=== PATIENT | female | born 1945 | race Caucasian/White ===

== ENCOUNTER 2017-07-11 11:06 | Inpatient (IN) | payer MEDICARE ==
[~2017-07-11] VITALS: Ht 162.6 cm; Wt 84.4 kg
[2017-07-11] MEDS ORDERED: HYDROmorphone PF 2 MG/ML VIAL IV PRN (11:30)
[2017-07-11 11:31] VITALS: BP 151/83
[2017-07-11] MEDS ORDERED: POLYETHYLENE GLYCOL 3350 17 GM PACKET. PO PRN (11:45)
[2017-07-11 12:08] LABS: BASO % 0 % (0-3); EOS # 0.1 x10^3/uL (0.0-0.7); EOS % 1 % (0-3); HEMATOCRIT 42.7 % (36.0-47.0); HEMOGLOBIN 14.4 g/dL (12.0-15.5); LYMPH # 0.5 x10^3/uL (1.0-4.8); LYMPH % 4 % (24-48); MEAN CORPUSCULAR HEMOGLOBIN 30 pg (25-35); MEAN CORPUSCULAR HGB CONC 34 g/dL (31-37); MEAN CORPUSCULAR VOLUME 89 fL (79-100); MONO # 0.6 x10^3/uL (0.0-1.1); MONO % 5 % (0-9); NEUT # 11.6 x10^3uL (1.8-7.7); NEUT % 91 % (31-73); PLATELET COUNT 181 x10^3/uL (140-400); RED BLOOD COUNT 4.78 x10^6/uL (3.50-5.40); RED CELL DISTRIBUTION WIDTH 12.9 % (11.5-14.5); WHITE BLOOD COUNT 12.8 x10^3/uL (4.0-11.0)
[2017-07-11 12:24] LABS: ALBUMIN 2.6 g/dL (3.4-5.0); ALBUMIN/GLOBULIN RATIO 0.6 (1.0-1.7); CALCIUM 9.1 mg/dL (8.5-10.1); CREATININE 1.5 mg/dL (0.6-1.0); GFR 34.2; POTASSIUM 4.9 mmol/L (3.5-5.1); TOTAL BILIRUBIN 1.3 mg/dL (0.2-1.0); TOTAL PROTEIN 7.1 g/dL (6.4-8.2)
[2017-07-11] MEDS ORDERED: INSULIN ASPART 300 UNITS/3 ML INSULN.PEN SQ ONE ×2 (13:00→16:45)
[2017-07-11] MEDS: CLINDAMYCIN 600MG PREMIX 50 ML IV SCH ×2 (13:32→20:57)
[2017-07-11] MEDS: IV NORMAL SALINE 1,000ML 1,000 ML IV SCH ×3 (13:32→22:00)
--- NOTE | 2017-07-11 13:33 | RAD ---
Indication: Cough and congestion. Time of exam 1312 hours. No prior studies are available for comparison. FINDINGS: The heart size is normal. The lungs are clear. No pleural effusion or pneumothorax is identified. The pulmonary vascularity is normal. IMPRESSION: No acute abnormality detected.
[2017-07-11 13:38] LABS: % BANDS 26 % (0-9); % BASOS 2 % (0-3); % EOS 1 % (0-5); % LYMPHS 1 % (24-48); % MONOS 5 % (0-10); PLT ESTIMATE ADEQUATE (ADEQUATE)
[2017-07-11 13:41] LABS: POLYCHROMASIA SLIGHT; TOXIC GRANULATION SLIGHT
--- NOTE | 2017-07-11 13:48 | RAD ---
Indication: Redness, fever and tenderness to the anal region. Axial imaging through the abdomen and pelvis was performed without contrast. No prior studies are available for comparison. The lung bases are clear. The liver and gallbladder are unremarkable. The pancreas and spleen are unremarkable. No adrenal mass is identified. The kidneys are unremarkable. No calculi or hydronephrosis is seen. Aorta is calcified but nonaneurysmal. The small and large bowel loops are normal caliber. There is no ascites. There is a tiny fat-containing umbilical hernia. The bladder is unremarkable. There are inflammatory changes identified within the fat in the right gluteal region extending anteriorly to involve the vulva. Areas of slightly higher density are identified within the fat which may represent more phlegmonous changes but no well-formed fluid collection or abscess is seen at this time. No intra-abdominal abscess is seen. Impression: Cellulitic changes involving the right gluteal and right vulvar regions. No fluid collection or abscess is detected. PQRS Compliance Statement: One or more of the following individualized dose reduction techniques were utilized for this examination: 1. Automated exposure control 2. Adjustment of the mA and/or kV according to patient size 3. Use of iterative reconstruction technique
[2017-07-11] MEDS ORDERED: MEROPENEM 1 GM in IV NORMAL SALINE 100ML 100 ML IV SCH (14:00)
[2017-07-11] MEDS ORDERED: NAPR220C4 PO (14:16)
[2017-07-11] MEDS: FLUCONAZOLE 100 MG TABLET. PO SCH (14:24)
[2017-07-11 14:34] VITALS: BP 127/61
[2017-07-11] MEDS ORDERED: DEXTROSE 50% 25 GM / 50ML DISP.SYRIN. IV PRN (15:45)
[2017-07-11] MEDS: INSULIN ASPART 300 UNITS/3 ML INSULN.PEN SQ SCH ×2 (16:30→21:03)
[2017-07-11 19:35] VITALS: BP 133/83
[2017-07-11] MEDS: MEROPENEM 1 GM in IV NORMAL SALINE 100ML 100 ML IV SCH (19:53)
[2017-07-11] MEDS: ACETAMINOPHEN 500 MG TABLET PO PRN (19:53)
[2017-07-11] MEDS: LACTOBACILLUS RHAMNOSUS GG 1 CAPSULE. PO SCH (20:57)
[2017-07-11 21:13] LABS: BILIRUBIN,URINE NEG (NEG); CLARITY,URINE CLEAR; COLOR,URINE YELLOW; GLUCOSE,URINE >=1000 mg/dL (NEG); NITRITE,URINE NEG (NEG); UROBILINOGEN,URINE 0.2 mg/dL (0.2 mg/dL)
[2017-07-11 21:14] LABS: BACTERIA,URINE FEW /HPF (0-FEW); SQUAMOUS EPITHELIAL CELL,UR FEW /LPF
[2017-07-11] MEDS: NYSTATIN TOPICAL POWDER 30GM BOTTLE. TP SCH (21:27)
[2017-07-11 23:02] VITALS: BP 120/61
[2017-07-12] MEDS: IV NORMAL SALINE 1,000ML 1,000 ML IV SCH ×5 (03:08→22:56)
[2017-07-12] MEDS: CLINDAMYCIN 600MG PREMIX 50 ML IV SCH ×3 (05:28→21:06)
[2017-07-12] MEDS: ACETAMINOPHEN 500 MG TABLET PO PRN ×2 (06:04→22:22)
[2017-07-12 06:14] VITALS: BP 107/66
[2017-07-12 06:15] LABS: BASO # 0.1 x10^3/uL (0.0-0.2); BASO % 1 % (0-3); EOS # 0.1 x10^3/uL (0.0-0.7); EOS % 1 % (0-3); HEMATOCRIT 36.6 % (36.0-47.0); HEMOGLOBIN 12.5 g/dL (12.0-15.5); LYMPH # 0.7 x10^3/uL (1.0-4.8); LYMPH % 6 % (24-48); MEAN CORPUSCULAR HEMOGLOBIN 30 pg (25-35); MEAN CORPUSCULAR HGB CONC 34 g/dL (31-37); MEAN CORPUSCULAR VOLUME 87 fL (79-100); MONO # 0.7 x10^3/uL (0.0-1.1); MONO % 6 % (0-9); NEUT # 9.5 x10^3uL (1.8-7.7); NEUT % 86 % (31-73); PLATELET COUNT 164 x10^3/uL (140-400); RED CELL DISTRIBUTION WIDTH 12.7 % (11.5-14.5)
[2017-07-12 06:24] LABS: CALCIUM 8.1 mg/dL (8.5-10.1); GFR 54.7; POTASSIUM 4.3 mmol/L (3.5-5.1)
[2017-07-12] MEDS ORDERED: DEXTROSE 50% 25 GM / 50ML DISP.SYRIN. IV PRN (08:15)
[2017-07-12] MEDS: INSULIN ASPART 300 UNITS/3 ML INSULN.PEN SQ SCH ×3 (08:35→17:28)
[2017-07-12] MEDS: NYSTATIN TOPICAL POWDER 30GM BOTTLE. TP SCH ×2 (09:00→21:00)
[2017-07-12] MEDS ORDERED: FLUCONAZOLE 100 MG TABLET. PO SCH (09:00)
[2017-07-12] MEDS ORDERED: INSULIN DETEMIR 300 UNITS/3 ML INSULN.PEN. SQ SCH (09:00)
[2017-07-12] MEDS: LACTOBACILLUS RHAMNOSUS GG 1 CAPSULE. PO SCH ×2 (09:08→21:04)
[2017-07-12] MEDS: DOCUSATE SODIUM 100 MG CAPSULE PO PRN (09:09)
[2017-07-12] MEDS: FLUCONAZOLE 100 MG TABLET. PO SCH (09:09)
[2017-07-12] MEDS: MEROPENEM 1 GM in IV NORMAL SALINE 100ML 100 ML IV SCH (09:10)
[2017-07-12] MEDS ORDERED: MEROPENEM 1 GM in IV NORMAL SALINE 100ML 100 ML IV SCH (11:30)
[2017-07-12 11:37] VITALS: BP 128/68
[2017-07-12 16:05] VITALS: BP 140/72
[2017-07-12 19:39] VITALS: BP 139/77
[2017-07-12] MEDS: MEROPENEM IV Push 1 GM VIAL. IVP SCH (21:05)
[2017-07-12] MEDS: INSULIN DETEMIR 300 UNITS/3 ML INSULN.PEN. SQ SCH (21:07)
[2017-07-12 22:42] VITALS: BP 116/73
[2017-07-13 01:08] LABS: HEMOGLOBIN A1C 13.6 % (4.8-5.6)
[2017-07-13 05:00] VITALS: BP 116/71
[2017-07-13] MEDS: ACETAMINOPHEN 500 MG TABLET PO PRN (06:00)
[2017-07-13] MEDS: CLINDAMYCIN 600MG PREMIX 50 ML IV SCH ×4 (06:04→20:31)
[2017-07-13] MEDS: MEROPENEM IV Push 1 GM VIAL. IVP SCH ×3 (06:05→21:54)
[2017-07-13] MEDS: INSULIN DETEMIR 300 UNITS/3 ML INSULN.PEN. SQ SCH ×2 (08:42→20:33)
[2017-07-13] MEDS: INSULIN ASPART 300 UNITS/3 ML INSULN.PEN SQ SCH ×3 (08:42→17:15)
[2017-07-13] MEDS: IV NORMAL SALINE 1,000ML 1,000 ML IV SCH ×2 (09:00→11:38)
[2017-07-13] MEDS: NYSTATIN TOPICAL POWDER 30GM BOTTLE. TP SCH ×2 (09:00→20:33)
[2017-07-13] MEDS: LACTOBACILLUS RHAMNOSUS GG 1 CAPSULE. PO SCH ×2 (09:06→20:31)
[2017-07-13] MEDS: FLUCONAZOLE 100 MG TABLET. PO SCH (09:06)
--- NOTE | 2017-07-13 09:49 | PN ---
DATE: 07/12/2017 SUBJECTIVE: The patient is a 72-year-old female who came in with cellulitis to the perineal area and the right gluteal area. CT scan does not show any abscesses. Her white count has come down a little bit from 12 to 11. She had 26 bands. The patient's sodium yesterday was 129, potassium 4.9, BUN and creatinine 23 and 1.5. They have improved to 132, 27, and 1. Blood sugars are still running on the high side. We will continue to increase her insulin, given diabetic information about her diabetes. No doubt as one of the instigating factors. OBJECTIVE: Otherwise, the patient's abdomen is soft, diffuse tenderness, no rebound or guarding. Positive bowel sounds. The patient's perineal area markedly improved, although markedly inflamed, is still inflamed and irritated. The patient had a culture taken. She has showed some gram-positive rods, gram-positive cocci from the drainage from the gluteal area. We will continue to monitor. Continue with IV antibiotic therapy. IMPRESSION: Sepsis, perineal cellulitis, type 2 diabetes and perineal yeast infection to that area as described. MAXIMUS ESPAÑA MD DR: FERNANDO/loyd JOB#: [id number] / [id number]
[2017-07-13 11:48] VITALS: BP 146/71
[2017-07-13] MEDS: ONDANSETRON PF 4 MG/2 ML VIAL. IV PRN (14:13)
[2017-07-13 15:35] VITALS: BP 128/72
--- NOTE | 2017-07-13 16:31 | RAD ---
Clinical indications: Right leg pain and coldness. Decreased pulse. Findings: Duplex sonography of the peripheral arterial system of both lower extremities including gomez scale and color flow and spectral waveform analysis was performed.Triphasic and biphasic waveforms are seen. No occlusive disease is seen. No significant plaque formation or flow-limiting stenosis is identified. The measurements were performed using the NASCET criteria. Peak systolic flow velocities are as follows: Right leg: common femoral artery- 44 cm/sec, profunda femoral artery -53 cm/sec, proximal superficial femoral artery -56cm/sec, mid superficial femoral artery -62 cm/sec, distal superficial femoral artery- 74 cm/sec, popliteal artery -27 cm/sec, proximal posterior tibial artery- 19 cm/sec, distal posterior tibial artery- 27 cm/sec, peroneal artery- 37 cm/sec, anterior tibial artery- 35 cm/sec, dorsalis pedis artery -51 cm/sec. Left leg: common femoral artery- 64 cm/sec, profunda femoral artery -34 cm/sec, proximal superficial femoral artery- 49cm/sec, mid superficial femoral artery- 59 cm/sec, distal superficial femoral artery- 41 cm/sec, popliteal artery -39 cm/sec, proximal posterior tibial artery -29 cm/sec, distal posterior tibial artery- 12 cm/sec, peroneal artery -30 cm/sec, anterior tibial artery -35 cm/sec, dorsalis pedis artery- 148 cm/sec. Impression: No significant peripheral arterial vascular disease is seen by duplex sonographic evaluation. Electronically signed by: Perry Avila MD (07/13/2017 4:28 PM) [id number]
[2017-07-13] MEDS: PENTOXIFYLLINE ER 400 MG TABLET.ER. PO SCH (17:12)
[2017-07-13 19:53] VITALS: BP 122/76
[2017-07-13] MEDS: traMADol/APAP 37.5/325 1 TAB TABLET PO PRN (20:31)
--- NOTE | 2017-07-13 21:01 | PN ---
DATE: SUBJECTIVE: A 72-year-old female newly diagnosed diabetic with cellulitis to her perineal and gluteal area. The patient complained of pain in her right foot area and pulses were noted to be markedly diminished. We will do further testing on that as an outpatient, put her on Trental for that. However, the patient's white count is down a little bit. She did have marked left shift yesterday consistent with sepsis. Blood sugars are coming down gradually as the infection shows marked improvement in the perineal and gluteal area as well as using nystatin for the yeast infection. OBJECTIVE: GENERAL: Otherwise, the patient herself is alert and oriented. VITAL SIGNS: Blood pressure 116/70, respiratory rate 20, pulse 80, had a temperature last night of 100.7 and pulse of 110. So, she will continue to be monitored carefully and IV antibiotic therapy. Make further evaluation. IMPRESSION: Cellulitis to the perineal area and to the right gluteal area, contusion of the right great toe as well as peripheral vascular disease, put her on the Trental. Continue on IV antibiotic therapy. Type 2 diabetes, new onset as well was also diagnosed. MAXIMUS ESPAÑA MD DR: FERNANDO/loyd JOB#: [id number] / [id number]
[2017-07-13 22:35] VITALS: BP 108/73
[2017-07-14] MEDS: traMADol/APAP 37.5/325 1 TAB TABLET PO PRN ×3 (01:54→20:40)
[2017-07-14] MEDS: CLINDAMYCIN 600MG PREMIX 50 ML IV SCH (04:50)
[2017-07-14 05:02] VITALS: BP 128/71
[2017-07-14] MEDS: MEROPENEM IV Push 1 GM VIAL. IVP SCH (05:16)
[2017-07-14] MEDS: LACTOBACILLUS RHAMNOSUS GG 1 CAPSULE. PO SCH ×2 (08:10→20:40)
[2017-07-14] MEDS: PENTOXIFYLLINE ER 400 MG TABLET.ER. PO SCH ×2 (08:11→20:44)
[2017-07-14] MEDS: FLUCONAZOLE 100 MG TABLET. PO SCH (08:11)
[2017-07-14] MEDS: NYSTATIN TOPICAL POWDER 30GM BOTTLE. TP SCH ×2 (08:11→20:43)
[2017-07-14] MEDS: INSULIN DETEMIR 300 UNITS/3 ML INSULN.PEN. SQ SCH ×2 (08:19→20:47)
[2017-07-14] MEDS: INSULIN ASPART 300 UNITS/3 ML INSULN.PEN SQ SCH ×4 (08:33→20:41)
--- NOTE | 2017-07-14 08:42 | RAD ---
Examination: 3 views of the right foot History: History of right great toe pain Comparison: None available Findings: Large enthesophyte identified in the inferior aspect of the calcaneus. There is mild joint space loss identified in the first MTP joint likely degeneration. The alignment of the tarsal joints, tarsometatarsal joints, interphalangeal joint grossly appears unremarkable. Impression: No acute osseous findings.
[2017-07-14 10:18] VITALS: BP 131/66
[2017-07-14] MEDS: cefTRIAXone IV Push 1 GM VIAL. IVP SCH (11:25)
[2017-07-14] MEDS ORDERED: CALCIUM CARBONATE 500 MG TAB.CHEW PO PRN (13:15)
[2017-07-14 15:43] VITALS: BP 162/74
[2017-07-14] MEDS: ONDANSETRON PF 4 MG/2 ML VIAL. IV PRN (17:10)
[2017-07-14] MEDS: ACETAMINOPHEN 500 MG TABLET PO PRN (17:10)
--- NOTE | 2017-07-14 18:38 | PN ---
DATE: 07/14/2017 SUBJECTIVE: A 72-year-old female with severe cellulitis and sepsis to her perineal and gluteal area. The patient is resting fairly comfortably, making fairly good progress overall. PHYSICAL EXAMINATION: VITAL SIGNS: The patient's blood pressure down to about 160/70, respiratory 20, pulse still at 100, occasionally spikes a temperature, but overall is improving. LUNGS: Diminished, but clear. CARDIOVASCULAR: Stable. GENITOURINARY: Perineal area less inflamed, but she is still very tender, still unable to sit as a result of the pain in her gluteal area. We will continue on IV antibiotic therapy and make further evaluation on her; urine culture came back growing out E. coli, perineal abscess apparently did not grow out anything in particular with probable E. coli there. We will continue on IV antibiotic therapy. IMPRESSION: Acute cellulitis to the perineal area, acute cellulitis to the gluteal area, erysipelas, as well as urinary tract infection with Escherichia coli. PLAN: Continue on intravenous antibiotic therapy, adjust accordingly. MAXIMUS ESPAÑA MD DR: FERNANDO/loyd JOB#: [id number] / [id number]
[2017-07-14 19:16] VITALS: BP 129/61
[2017-07-14] MEDS: DOCUSATE SODIUM 100 MG CAPSULE PO PRN (20:40)
[2017-07-14 22:52] VITALS: BP 113/64
[2017-07-15] MEDS: traMADol/APAP 37.5/325 1 TAB TABLET PO PRN (04:43)
[2017-07-15 05:04] VITALS: BP 111/73
[2017-07-15] MEDS: PENTOXIFYLLINE ER 400 MG TABLET.ER. PO SCH ×2 (08:27→17:06)
[2017-07-15] MEDS: FLUCONAZOLE 100 MG TABLET. PO SCH (08:27)
[2017-07-15] MEDS: LACTOBACILLUS RHAMNOSUS GG 1 CAPSULE. PO SCH ×2 (08:27→22:08)
[2017-07-15] MEDS: INSULIN DETEMIR 300 UNITS/3 ML INSULN.PEN. SQ SCH ×2 (08:33→22:09)
[2017-07-15] MEDS: NYSTATIN TOPICAL POWDER 30GM BOTTLE. TP SCH ×2 (08:33→21:00)
[2017-07-15] MEDS: cefTRIAXone IV Push 1 GM VIAL. IVP SCH (10:38)
[2017-07-15 11:27] VITALS: BP 127/81
[2017-07-15] MEDS: INSULIN ASPART 300 UNITS/3 ML INSULN.PEN SQ SCH ×2 (11:30→16:30)
[2017-07-15] MEDS ORDERED: VANCOMYCIN PER PHARMACY MC PRN (14:30)
--- NOTE | 2017-07-15 14:39 | RAD ---
Portable AP upright view CXR: Clinical indications: PICC line placement. Findings: A right upper extremity PICC line has been placed and the tip is seen within the lower SVC at the junction with the right atrium. No acute lung infiltrate or pleural effusion or pulmonary edema or lung mass or pneumothorax is seen. Mild vascular congestion is seen. The heart size and mediastinum are unremarkable otherwise. Impression: Mild bilateral vascular congestion. This may be an early finding of CHF. Placement of PICC line..
[2017-07-15] MEDS ORDERED: MEROPENEM 1 GM in IV NORMAL SALINE 100ML 100 ML IV SCH (15:00)
[2017-07-15 15:03] VITALS: BP 109/59
[2017-07-15] MEDS: HYDROcodone/APAP 5/325MG 1 TAB TABLET PO PRN ×2 (15:17→22:08)
[2017-07-15 15:24] LABS: BASO # 0.1 x10^3/uL (0.0-0.2); BASO % 1 % (0-3); EOS # 0.1 x10^3/uL (0.0-0.7); EOS % 1 % (0-3); HEMATOCRIT 38.7 % (36.0-47.0); HEMOGLOBIN 13.2 g/dL (12.0-15.5); LYMPH # 1.6 x10^3/uL (1.0-4.8); LYMPH % 11 % (24-48); MEAN CORPUSCULAR HEMOGLOBIN 30 pg (25-35); MEAN CORPUSCULAR HGB CONC 34 g/dL (31-37); MEAN CORPUSCULAR VOLUME 87 fL (79-100); MONO # 0.6 x10^3/uL (0.0-1.1); MONO % 4 % (0-9); NEUT # 12.4 x10^3uL (1.8-7.7); NEUT % 84 % (31-73); PLATELET COUNT 251 x10^3/uL (140-400); RED BLOOD COUNT 4.47 x10^6/uL (3.50-5.40); RED CELL DISTRIBUTION WIDTH 13.3 % (11.5-14.5); WHITE BLOOD COUNT 14.8 x10^3/uL (4.0-11.0)
[2017-07-15] MEDS ORDERED: VANCOMYCIN 2 GM in IV NORMAL SALINE 500ML 500 ML IV ONE (16:00)
[2017-07-15 20:16] VITALS: BP 131/74
[2017-07-15] MEDS: MEROPENEM IV Push 1 GM VIAL. IVP SCH (22:10)
[2017-07-15 22:30] VITALS: BP 137/74
[2017-07-16 06:14] VITALS: BP 131/79
[2017-07-16] MEDS: MEROPENEM IV Push 1 GM VIAL. IVP SCH (06:22)
[2017-07-16 06:32] LABS: CALCIUM 8.2 mg/dL (8.5-10.1); CREATININE 0.7 mg/dL (0.6-1.0); GFR 82.5
[2017-07-16 06:33] LABS: BASO % 0 % (0-3); EOS # 0.1 x10^3/uL (0.0-0.7); EOS % 1 % (0-3); HEMATOCRIT 34.7 % (36.0-47.0); LYMPH # 1.6 x10^3/uL (1.0-4.8); LYMPH % 12 % (24-48); MEAN CORPUSCULAR HEMOGLOBIN 30 pg (25-35); MEAN CORPUSCULAR HGB CONC 34 g/dL (31-37); MEAN CORPUSCULAR VOLUME 86 fL (79-100); MONO # 0.7 x10^3/uL (0.0-1.1); MONO % 5 % (0-9); NEUT # 11.1 x10^3uL (1.8-7.7); NEUT % 82 % (31-73); PLATELET COUNT 213 x10^3/uL (140-400); POTASSIUM 2.9 mmol/L (3.5-5.1); RED BLOOD COUNT 4.03 x10^6/uL (3.50-5.40); RED CELL DISTRIBUTION WIDTH 13.1 % (11.5-14.5); WHITE BLOOD COUNT 13.6 x10^3/uL (4.0-11.0)
[2017-07-16] MEDS ORDERED: POTASSIUM CHLORIDE 20 MEQ TABLET.ER. PO ONE (07:00)
[2017-07-16] MEDS: INSULIN ASPART 300 UNITS/3 ML INSULN.PEN SQ SCH ×2 (07:30→11:30)
[2017-07-16] MEDS: FUROSEMIDE 20 MG/2 ML VIAL IVP SCH ×2 (09:00→09:49)
[2017-07-16] MEDS ORDERED: POTASSIUM CHLORIDE 20 MEQ TABLET.ER. PO SCH (09:00)
[2017-07-16] MEDS: LACTOBACILLUS RHAMNOSUS GG 1 CAPSULE. PO SCH (09:46)
[2017-07-16] MEDS: FLUCONAZOLE 100 MG TABLET. PO SCH (09:47)
[2017-07-16] MEDS: PENTOXIFYLLINE ER 400 MG TABLET.ER. PO SCH (09:48)
[2017-07-16] MEDS: INSULIN DETEMIR 300 UNITS/3 ML INSULN.PEN. SQ SCH (09:55)
[2017-07-16] MEDS: NYSTATIN TOPICAL POWDER 30GM BOTTLE. TP SCH (10:05)
[2017-07-16 11:03] VITALS: BP 149/84
[2017-07-16] MEDS: HYDROcodone/APAP 5/325MG 1 TAB TABLET PO PRN (13:17)
[2017-07-16 14:04] LABS: % SEGS 64 % (35-66)
[2017-07-16] MEDS ORDERED: VANCOMYCIN 1.25 GM in IV NORMAL SALINE 250ML 250 ML IV SCH (16:00)
--- NOTE | 2017-07-16 18:26 | PN ---
DATE: SUBJECTIVE: A 72-year-old female in with cellulitis to the perineal area, got a little bit worse. We will have to change, put a PICC line and change her back to vancomycin and also Maxipime. Also may have some evidences of heart failure per PICC line placement. We will go ahead and check that and give her some Lasix, take her off her fluids. Make further evaluation on her as indicated. PHYSICAL EXAMINATION: VITAL SIGNS: Otherwise, the blood pressure 110/60, respiratory rate 24, pulse up to 130, temperature is 98.9. LUNGS: Diminished, some rales noted. CARDIOVASCULAR: Regular sinus rhythm with tachy. ABDOMEN: Soft, nontender. Perineal area still inflamed and extending down into the right upper leg, so I will change back onto the IV antibiotic therapy. PLAN: Otherwise, we will continue therapy, pulse need to decrease. She did have decreased peripheral vascular disease. We will get Cardiology consultation and make further evaluation on her as indicated. MAXIMUS ESPAÑA MD DR: FERNANDO/loyd JOB#: [id number] / [id number]
--- NOTE | 2017-07-17 14:55 | PN ---
DATE: 07/14/2017 ADDENDUM The patient may have not only cellulitis, sepsis, but also mild CHF. We will go ahead and give her some Lasix and consult with Cardiology. MAXIMUS ESPAÑA MD DR: FERNANDO/loyd JOB#: [id number] / [id number]
== END 2017-07-16 14:00 | disposition short-term general hospital (02) | DRG 871 ==
LOC: 1 SOUTH 11:06
PROVIDERS: ADMIT Family Medicine; ATTEND Family Medicine
PROC: 02HV33Z Insertion of Infusion Device into Superior Vena Cava, Percutaneous Approach (ICD-10-PCS; principal; 2017-07-15)
DX: A41.9 Sepsis, unspecified organism (principal); E43 Unspecified severe protein-calorie malnutrition; E11.51 Type 2 diabetes mellitus with diabetic peripheral angiopathy without gangrene; I50.9 Heart failure, unspecified; L03.315 Cellulitis of perineum; N39.0 Urinary tract infection, site not specified; L03.317 Cellulitis of buttock; Y92.89 Other specified places as the place of occurrence of the external cause; A46 Erysipelas; Z66 Do not resuscitate; B37.3 Candidiasis of vulva and vagina; B96.20 Unspecified Escherichia coli [E. coli] as the cause of diseases classified elsewhere; S90.111A Contusion of right great toe without damage to nail, initial encounter; X58.XXXA Exposure to other specified factors, initial encounter; Y93.89 Activity, other specified; Y99.8 Other external cause status
CPT/HCPCS: 36415; 36569; 71010; 71020; 73630; 74176; 80048; 80053; 81001; 82947; 83036; 83605; 83880; 85007; 85025; 87040; 87070; 87071; 87075; 87086; 87102; 87186; 93925; 99406; J0696; J1170; J1815; J2185; J2405; J3370; J3490; J7040; J7030